=== PATIENT | male | born 1980 | race Caucasian/White ===

== ENCOUNTER 2019-11-23 11:24 | Outpatient (CLI) | payer OTHER, SELFPAY ==
--- NOTE | ~2019-11-23 | CT_ITS ---
EXAMINATION: CT abdomen pelvis wo con DATE: 11/23/2019 12:04 INDICATION: Lower abdominal pain. Hernia. TECHNIQUE: Computed tomography (CT) of the abdomen and pelvis was performed without intravenous contr ast. Automated exposure control and iterative reconstruction technique were employed. The dose-length product was 533.56 mGy-cm. COMPARISON: CT dated 05/30/2018 FINDINGS: Lung bases are clear. Visualized inferior heart is normal. No pericardial or pleural effusion. Small sliding-type hiatal hernia. Numerous bilateral subcentimeter low-attenuation hepatic cysts. [place] er, spleen, pancreas and bilateral adrenal glands are normal. Numerous bilateral renal cysts, several which are hyperdense consistent with proteinaceous/hemorrhagic cyst consistent with a cystic kidney disease. There are a few bilateral nonobstructing renal stones the largest measuring 5 mm on the righ t and 4 mm on the left. No hydronephrosis. Normal appendix. No dilated loops of bowel. Bladder is nor mal. Unchanged small fat-containing umbilical and supraumbilical ventral hernias. No free intraperito ramón gas or fluid. No pathologically enlarged abdominal or pelvic lymphadenopathy. Mild lumbar spondy losis. Unchanged bone islands at the right atrium and right femoral head. IMPRESSION: 1. Unchanged small fat-containing umbilical and supraumbilical ventral hernias. 2. Polycystic kidney disease with small bilateral nonobstructing renal stones. Reviewed, dictated and finalized at location A. HER
[2019-11-23 12:46] LABS: Basophils Percent Auto 0.6 % (0.2-1.2); Eosinophils Absolute Auto 0.2 K/mm3 (0-0.3); Eosinophils Percent Auto 2.4 % (0-4.4); Hematocrit 43.3 % (42.0-52.0); Hemoglobin 14.8 g/dL (14.0-18.0); Immature Granulocyte Absolute 0.01 K/mm3 (0.00-0.031); Immature Granulocyte Percent A 0.1 % (0-0.5); Lymphocytes Absolute Auto 1.68 K/mm3 (0.9-3.2); Lymphocytes Percent Auto 23.7 % (18.3-44.2); Mean Corpuscular HGB Conc 34.2 g/dl (32-36); Mean Corpuscular Hemoglobin 28.8 pg (26-34); Mean Corpuscular Volume 84.4 fl (80-100); Monocytes Absolute Auto 0.5 K/mm3 (0.1-0.6); Monocytes Percent Auto 7.5 % (2.6-8.5); Neutrophils Absolute Auto 4.7 K/mm3 (1.3-6.7); Neutrophils Percent Auto 65.7 % (45.5-73.1); Platelet Count Result 366 k/mm3 (150-375); Red Blood Count 5.13 M/mm3 (4.6-6.20); Red Cell Distribution Width 13.5 % (11.5-14.5); White Blood Count 7.1 K/mm3 (4.5-10.0)
== END 2019-11-23 11:25 | disposition home or self-care (01) ==
LOC: ANHIMG 11:32
PROVIDERS: PCP Family Medicine; Visit Provider Nurse Practitioner Family
DX: R10.30 Lower abdominal pain, unspecified (principal); K46.9 Unspecified abdominal hernia without obstruction or gangrene; N20.0 Calculus of kidney; Q61.3 Polycystic kidney, unspecified
CPT/HCPCS: 36415; 74176; 85025

== ENCOUNTER → 2021-03-04 06:47 | Outpatient (CLI) | payer OTHER, SELFPAY ==
[2021-03-05 19:27] LABS: SARS-CoV-2 RNA PCR Negative
== END ==
PROVIDERS: PCP Family Medicine; Visit Provider Nurse Practitioner Family
DX: Z20.822 Contact with and (suspected) exposure to COVID-19 (principal); R09.89 Other specified symptoms and signs involving the circulatory and respiratory systems
CPT/HCPCS: C9803; U0003; U0005

== ENCOUNTER 2022-05-08 07:51 | Outpatient (CLI) | payer OTHER, SELFPAY ==
--- NOTE | 2022-06-04 13:35 | WPDHOMESLEEP ---
Sleep Study - Home Unattended Date of Study: 05/08/22 Ordering Provider: Cr Bender MD Interpreting Provider: Melony Silvestre MD Home Sleep Study Type: Watch PAT Height: 1.91 m Weight: 97.522 kg Body Mass Index: 26.9 Neck Circumference (inches): 16.25 [place]: 7 Reason for Sleep Study His tells him that he snores Sleep History Holland Palacio is a 41-year-old man with difficulty falling asleep and staying asleep. His tells him that he snores. He rarely awakens from sleep feeling short of breath. He frequently awakens at night with heartburn, belching or coughing. He constantly snores and it is loud enough for others to complain about it. He frequently has trouble sleeping the cold. He rarely wakes up gasping for breath at night. Frequently has breathing problems at night observed by others. He frequently sweats excessively night. He does not notice his heart pounding irregularly. He occasionally falls asleep during the day, does not fall asleep involuntarily or while driving. He does not have loss of muscle tone with strong emotion. He never has daytime difficulties due to excessive sleepiness. He does not feel paralyzed on waking or falling asleep, does not have vivid dreamlike scenes upon awakening or falling asleep and he is never afraid to go to sleep. He occasionally has nightmares. He occasionally remembers his dreams. He frequently has racing thoughts. He occasionally feels sad or depressed. He frequently has anxiety. He occasionally has muscular tension. He frequently notices parts of his body jerking. He occasionally kicks at night. He occasionally has crawling and aching feelings in his legs and leg pain at night. He does not have morning jaw pain. He denies grinding his teeth during sleep. He occasionally is bothered by pain during the day occasionally awakened by pain during the night. He frequently wakes up feeling stiff in the morning with sore achy muscles and pain in the neck and spine. He takes antacids regularly. Normal bedtime is 11:00 p.m. falling asleep within 30-45 minutes waking 4-5 times at night to urinate returning to sleep quickly. Wakes the morning at 7:00 a.m.. On weekends bedtime is 1:00 a.m. and he wakes at 9:00 a.m.. He does not take naps. A short nap is not refreshing. He is usually drowsy for an hour after waking. He feels better in the evening compared to other times of day. Habits: Tobacco 1 pack per day. Caffeine 2 servings daily. Alcohol once a month. No recreational drugs. [facility] Past Medical History Medical History Anxiety BMI 28.0-28.9,adult Dietary counseling and surveillance (06/20/18) Encounters for blood and urine testing Esophageal dysphagia Essential hypertension Gastroesophageal reflux disease without esophagitis Hx of acute pancreatitis Low serum potassium Routine physical examination Testicular pain, left Tobacco abuse Family History Family History Grandparent Family history of type 2 diabetes mellitus Father Mother No problems noted. Sibling No problems noted. 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
[2022-06-04 13:43] VITALS: BMI 26.9
--- NOTE | 2023-01-13 14:28 | SLEEP ---
new calls v [id number]
== END 2022-05-11 12:24 | disposition home or self-care (01) ==
LOC: ANHCSM 07:52
PROVIDERS: PCP Family Medicine; Visit Provider Family Medicine
DX: G47.33 Obstructive sleep apnea (adult) (pediatric) (principal)
CPT/HCPCS: 95800

== ENCOUNTER 2022-10-14 08:17 | Outpatient (CLI) | payer OTHER, SELFPAY ==
--- NOTE | 2022-11-04 18:21 | WPDSLEEPSTUD ---
Sleep Study Date of Study: 10/14/22 Ordering Provider: Cr Bender MD Interpreting Physician: Bertha Prather, Sleep Study Type: CPAP Titration Height: 1.91 m Weight: 97.522 kg Body Mass Index: 26.9 Neck Circumference (inches): 16 [place]: 10 Reason for Sleep Study He had an HSAT on 05/08/2022 that showed an overall AHI of 10.3 but a supine AHI of 72.5. He had several unidentified apneas that were actually central apneas. It was recommended that he have a PAP Titration study. Sleep History Holland Palacio is a? 41-year-old man with difficulty falling asleep and staying asleep.? His tells him that he snores.? He rarely awakens from sleep feeling short of breath.? He frequently awakens at night with heartburn, belching or coughing.? He constantly snores and it is loud enough for others to complain about it.? He frequently has trouble sleeping the cold.? He rarely wakes up gasping for breath at night.? Frequently has breathing problems at night observed by others.? He frequently sweats excessively night.? He does not notice his heart pounding irregularly.? He occasionally falls asleep during the day, does not fall asleep involuntarily or while driving.? He does not have loss of muscle tone with strong emotion.? He never has daytime difficulties due to excessive sleepiness.? He does not feel paralyzed on waking or falling asleep, does not have vivid dreamlike scenes upon awakening or falling asleep and he is never afraid to go to sleep.? He occasionally has nightmares.? He occasionally remembers his dreams.? He frequently has racing thoughts.? He occasionally feels sad or depressed.? He frequently has anxiety.? He occasionally has muscular tension.? He frequently notices parts of his body jerking.? He occasionally kicks at night.? He occasionally has crawling and aching feelings in his legs and leg pain at night.? He does not have morning jaw pain.? He denies grinding his teeth during sleep.? He occasionally is bothered by pain during the day occasionally awakened by pain during the night.? He frequently wakes up feeling stiff in the morning with sore achy muscles and pain in the neck and spine.? He takes antacids regularly. Normal bedtime is 11:00 p.m. falling asleep within 30-45 minutes waking 4-5 times at night to urinate returning to sleep quickly.? Wakes the morning at 7:00 a.m..? On weekends bedtime is 1:00 a.m. and he wakes at 9:00 a.m..? He does not take naps.? A short nap is not refreshing.? He is usually drowsy for an hour after waking.? He feels better in the evening compared to other times of day. Habits:? Tobacco 1 pack per day.? Caffeine 2 servings daily.? Alcohol once a month.? No recreational drugs. [facility] Past Medical History Medical History Anxiety BMI 28.0-28.9,adult Dietary counseling and surveillance (06/20/18) Encounters for blood and urine testing Esophageal dysphagia Essential hypertension Gastroesophageal reflux disease without esophagitis Hx of acute pancreatitis Low serum potassium Routine physical examination Testicular pain, left Tobacco abuse Family History Family History Grandparent Family history of type 2 diabetes mellitus Father Mother No problems noted. Sibling No problems noted. 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
[2022-11-04 18:40] VITALS: BMI 26.9
== END 2022-10-15 06:30 | disposition home or self-care (01) ==
LOC: ANHCSM 08:18
PROVIDERS: PCP Family Medicine; Visit Provider Family Medicine
DX: G47.33 Obstructive sleep apnea (adult) (pediatric) (principal)
CPT/HCPCS: 95811

== ENCOUNTER → 2023-11-24 16:13 | Outpatient (CLI) | payer OTHER, SELFPAY ==
--- NOTE | ~2023-11-24 | XR_ITS ---
XR abdomen/kub 1V DATE: 11/24/2023 16:40 INDICATION: Chronic kidney disease stage II (mild) TECHNIQUE: 2 supine AP views of the abdomen COMPARISON: None FINDINGS: The lung bases are clear. The psoas shadows are intact. No visceromegaly is detected. No ab normal calcification is noted. No evidence of bowel obstruction. Included skeletal structures are unremarkable. IMPRESSION: Nonspecific abdomen Reviewed, dictated and finalized at Location A. Reviewed, dictated and finalized at location B. [employer] OPERATIONS SPECIALIST IMPRESSION: Nonspecific abdomen
== END ==
PROVIDERS: PCP Internal Medicine Nephrology; Visit Provider Internal Medicine Nephrology
DX: I12.9 Hypertensive chronic kidney disease with stage 1 through stage 4 chronic kidney disease, or unspecified chronic kidney disease (principal); N18.2 Chronic kidney disease, stage 2 (mild); N20.0 Calculus of kidney; Q61.3 Polycystic kidney, unspecified; I25.84 Coronary atherosclerosis due to calcified coronary lesion; K21.9 Gastro-esophageal reflux disease without esophagitis; E78.00 Pure hypercholesterolemia, unspecified; Z72.0 Tobacco use
CPT/HCPCS: 74018

== ENCOUNTER 2024-02-29 07:28 | Outpatient (CLI) | payer OTHER, SELFPAY ==
--- NOTE | ~2024-02-29 | MR_ITS ---
EXAMINATION: MRA brain wo con DATE: 02/29/2024 08:25 INDICATION: Hypertension. Stage IIIa chronic kidney disease. TECHNIQUE: Magnetic resonance angiography (MRA) of the brain was performed without intravenous contra st with T1-weighted SPGR by the 3D [id number] technique. Maximum intensity projection 3D-reconstr uctions were obtained. COMPARISON: Brain MRI 11/09/2017 FINDINGS: Left vertebral artery is dominant. There is no significant stenosis of basilar artery or the posterio r cerebral arteries. There is no significant stenosis of the intracranial internal carotid arteries o r anterior or middle cerebral arteries. Anterior communicating artery is normal. The posterior commun icating arteries are normal. There is no aneurysm. IMPRESSION: 1. Normal MRA. Reviewed, dictated and finalized at location A. IMPRESSION: 1. Normal MRA.
== END 2024-02-29 07:29 | disposition home or self-care (01) ==
PROVIDERS: PCP Internal Medicine Nephrology; Visit Provider Internal Medicine Nephrology
DX: I12.9 Hypertensive chronic kidney disease with stage 1 through stage 4 chronic kidney disease, or unspecified chronic kidney disease (principal); N18.31 Chronic kidney disease, stage 3a; Q61.3 Polycystic kidney, unspecified; N20.0 Calculus of kidney; I25.84 Coronary atherosclerosis due to calcified coronary lesion; K21.9 Gastro-esophageal reflux disease without esophagitis; E78.00 Pure hypercholesterolemia, unspecified; Z72.0 Tobacco use
CPT/HCPCS: 70544